=== PATIENT | female | born 1980 | race Caucasian/White ===

== ENCOUNTER 2016-08-18 00:10 | Observation (INO) | payer OTHER ==
[2016-08-18] MEDS ORDERED: MORPHINE SULFATE 10 MG/ML SYRINGE IM STA (01:07)
[2016-08-18] MEDS ORDERED: HYDROcodone/APAP 7.5-325MG 1 EACH TAB PO ONE (01:42)
[2016-08-18] MEDS ORDERED: DIAZEPAM 5 MG/ML 2 ML SYRINGE IM STA (01:42)
--- NOTE | 2016-08-18 01:46 | XR ---
EXAM: XR Right Shoulder Complete, 3 Views. CLINICAL HISTORY: Reason: Pain TECHNIQUE: Three views of the right shoulder. COMPARISON: No relevant prior studies available. FINDINGS: Bones/joints: Unremarkable. No acute fracture. No dislocation. Soft tissues: Unremarkable. IMPRESSION: Unremarkable right shoulder x-rays.
[2016-08-18] MEDS ORDERED: ONDANSETRON 4 MG/2 ML VIAL IVP STA (02:03)
[2016-08-18] MEDS ORDERED: ONDANSETRON ODT 4 MG TAB PO STA (02:07)
[2016-08-18] MEDS ORDERED: RX INFO: IV CONTRAST WAS GIVEN 1 EACH MISC MISCELLANE PRN (02:12)
--- NOTE | 2016-08-18 03:03 | US ---
EXAM: US Duplex Right Upper Extremity Veins. CLINICAL HISTORY: Reason: Pain TECHNIQUE: Real-time ultrasound scan of the veins of the right upper extremity with color Doppler flow, spectral waveform analysis and compression. COMPARISON: No relevant prior studies available. FINDINGS: Deep veins: Unremarkable. No DVT in the internal jugular, subclavian, axillary, or brachial veins. Superficial veins: Unremarkable. No thrombus in the visualized superficial veins. Soft tissues: No acute findings. IMPRESSION: Normal right upper extremity duplex venous ultrasound.
[2016-08-18 03:08] LABS: Basophils # (A) 0.1 k/uL (0-0.2); Basophils % (A) 1 %; CH 32.1; CHCM 34.1; Eosinophils # (A) 0.3 k/uL (0-0.7); Eosinophils % (A) 3 %; HCT 41.5 % (34.0-46.0); HDW 2.38; HGB 13.5 gm/dL (11.4-16.0); Luc # (Auto) 0.19; Luc % (Auto) 2; Lymphocytes # (A) 5.1 k/uL (1.0-4.8); Lymphocytes % (A) 43 %; MCH 30.8 pg (25.0-35.0); MCHC 32.6 g/dL (31.0-37.0); MCV 94.6 fL (80.0-100.0); Mean Platelet Volume 6.6; Monocytes # (A) 0.4 k/uL (0-1.0); Monocytes % (A) 3 %; Neutrophils # (A) 5.9 k/uL (1.3-7.7); Neutrophils % (A) 49 %; RBC 4.39 m/uL (3.80-5.40); WBC 11.9 k/uL (3.8-10.6); WBC (Perox) 12.14
--- NOTE | 2016-08-18 03:12 | ED ---
Extremity Problem HPI - General Chief complaint: Extremity Problem,Nontraumatic Stated complaint: Poss Dislocated Shoulder R Time Seen by Provider: 08/18/16 00:44 Source: patient, RN notes reviewed Mode of arrival: ambulatory Limitations: no limitations - History of Present Illness Initial comments: This a 35-year-old female presents emergency Department with chief complaint of severe right shoulder pain started 3 days ago. Patient states she woke up with pain in the pain is persistently gotten worse. She states she has increased pain with any sort of movement. Patient states that she had no known injury. Patient states that she's noticed there's been increased swelling to her hand, forearm region. Patient states that she thought there is some discoloration noted. Patient states that she is right-hand dominant. Patient states that she is not having some paresthesia type pain. Patient states his palely up into her right shoulder, neck region and into her porch worse region. Patient states she feels most intense pain in her axilla region. She denies any history of DVTs. Patient states her pulses been normal. Patient states that she drove back from [place] to be seen because her insurance was not accepted. Patient states that she's never had anything like this in the past. Patient denies any shortness of breath. Denies any headache or dizziness. - Related Data Home Medications Medication Instructions Recorded Confirmed Escitalopram [Lexapro] 30 mg PO DAILY 04/20/14 08/18/16 Fish Oil/Dha/Epa [Fish Oil 1,200 1 each PO DIRECTED 04/20/14 08/18/16 mg Fish Oil] Levothyroxine Sodium [Synthroid] 50 mcg PO DAILY 04/20/14 08/18/16 Lysine 500 mg PO DIRECTED 04/20/14 08/18/16 Nicotine 14Mg/24Hr Patch [Habitrol 1 patch TRANSDERM DIRECTED 04/20/14 14Mg/24Hr Patch] Simvastatin [Zocor] 40 mg PO HS 04/20/14 08/18/16 Triamterene-Hctz 37.5-25Mg 1 each PO DAILY 04/20/14 08/18/16 [Maxzide 37.5-25] Zinc 50 mg PO DIRECTED 04/20/14 08/18/16 Previous Rx's Medication Instructions Recorded Ibuprofen [Motrin] 800 mg PO Q8HR #30 tab 09/02/14 Allergies Allergy/AdvReac Type Severity Reaction Status Date / Time pneumococcal vaccine Allergy Anaphylaxis Verified 09/02/14 17:53 [Pneumococcal Vaccine] Review of Systems ROS Statement: Those systems with pertinent positive or pertinent negative responses have been documented in the HPI. ROS Other: All systems not noted in ROS Statement are negative. Past Medical History Past Medical History: Hyperlipidemia, Thyroid Disorder Additional Past Medical History / Comment(s): stomach ulcer History of Any Multi-Drug Resistant Organisms: None Reported Past Surgical History: Cholecystectomy, Tonsillectomy Additional Past Surgical History / Comment(s): seasonal depression Past Psychological History: Depression Smoking Status: Current every day smoker Past Alcohol Use History: Occasional Past Drug Use History: None Reported General Exam Limitations: no limitations General appearance: alert, in no apparent distress Head exam: Present: atraumatic, normocephalic, normal inspection Neck exam: Present: tenderness (Moderate tenderness along the right trapezius, paraspinal), full ROM. Absent: meningismus, lymphadenopathy Respiratory exam: Present: normal lung sounds bilaterally. Absent: respiratory distress, wheezes, rales, rhonchi, stridor Cardiovascular Exam: Present: regular rate, normal rhythm, normal heart sounds. Absent: systolic murmur, diastolic murmur, rubs, gallop, clicks Extremities exam: Present: other (Patient has some swelling noted to her right arm to her hand in forearm region radial pulses equal bilaterally +2 Reflexes and 2 seconds patient has hypersensitivity noted to the arm patient reports severe pain with any sort of movement of the right arm there is mild discoloration noted) Neurological exam: Present: alert, oriented X3, CN II-XII intact, reflexes normal. Absent: motor sensory deficit Skin exam: Present: warm, dry Course Vital Signs 08/18/16 00:33 Temperature 97.4 F L Pulse Rate 83 Respiratory 20 Rate Blood Pressure 138/83 O2 Sat by Pulse 97 Oximetry Medical Decision Making - Medical Decision Making 35-year-old female presented for right arm pain. Patient's workup in the emergency department does not reveal any significant abnormality the patient has intractable pain. Patient has required multiple rounds of pain medication no relief of her symptoms. There is concern for possible thoracic alert syndrome. Patient be admitted under medicine pain management and orthopedic consult. - Lab Data Result diagrams: 08/18/16 02:44 08/18/16 02:44 Lab Results 08/18/16 08/18/16 08/18/16 Range/Units 02:44 02:44 02:44 WBC 11.9 H (3.8-10.6) k/uL RBC 4.39 (3.80-5.40) m/uL Hgb 13.5 (11.4-16.0) gm/dL Hct 41.5 (34.0-46.0) % MCV 94.6 (80.0-100.0) fL MCH 30.8 (25.0-35.0) pg MCHC 32.6 (31.0-37.0) g/dL RDW 13.0 (11.5-15.5) % Plt Count 306 (150-450) k/uL Neutrophils % 49 % Lymphocytes % 43 % Monocytes % 3 % Eosinophils % 3 % Basophils % 1 % Neutrophils # 5.9 (1.3-7.7) k/uL Lymphocytes # 5.1 H (1.0-4.8) k/uL Monocytes # 0.4 (0-1.0) k/uL Eosinophils # 0.3 (0-0.7) k/uL Basophils # 0.1 (0-0.2) k/uL Manual Slide Review Performed Toxic Granulation Present PT 9.8 (9.0-12.0) sec INR 1.0 (<1.1) APTT 28.3 (22.0-30.0) sec Sodium 143 (137-145) mmol/L Potassium 4.1 (3.5-5.1) mmol/L Chloride 105 (98-107) mmol/L Carbon Dioxide 27 (22-30) mmol/L Anion Gap 11 mmol/L BUN 12 (7-17) mg/dL Creatinine 0.88 (0.52-1.04) mg/dL Est GFR (MDRD) Af Amer >60 (>60 ml/min/1.73 sqM) Est GFR (MDRD) Non-Af >60 (>60 ml/min/1.73 sqM) Glucose 104 H (74-99) mg/dL Calcium 9.9 (8.4-10.2) mg/dL Total Bilirubin 0.5 (0.2-1.3) mg/dL AST 38 H (14-36) U/L ALT 47 (9-52) U/L Alkaline Phosphatase 90 (38-126) U/L Total Protein 6.9 (6.3-8.2) g/dL Albumin 4.0 (3.5-5.0) g/dL Disposition Clinical Impression: Intractable pain, Right arm pain, Swelling of right upper extremity Disposition: ADMITTED IP TO THIS [facility] Condition: Fair
[2016-08-18 03:13] LABS: ALT 47 U/L (9-52); AST 38 U/L (14-36); Alkaline Phosphatase 90 U/L (38-126); Anion Gap 11 mmol/L; Blood Urea Nitrogen 12 mg/dL (7-17); Calcium 9.9 mg/dL (8.4-10.2); Carbon Dioxide 27 mmol/L (22-30); Chloride 105 mmol/L (98-107); Glucose 104 mg/dL (74-99); Non-African American GFR(MDRD) >60 (>60 ml/min/1.73 sqM); Potassium 4.1 mmol/L (3.5-5.1); Sodium 143 mmol/L (137-145); Total Bilirubin 0.5 mg/dL (0.2-1.3); Total Protein 6.9 g/dL (6.3-8.2)
[2016-08-18] MEDS ORDERED: KETOROLAC 30 MG/ML 1 ML VIAL IVP STA (03:25)
[2016-08-18 03:33] LABS: Toxic Granulation Present
[2016-08-18 03:35] LABS: Partial Thromboplastin Time 28.3 sec (22.0-30.0); Prothrombin Time 9.8 sec (9.0-12.0)
[2016-08-18 03:40] LABS: Manual Review Performed
--- NOTE | 2016-08-18 03:50 | CT ---
EXAM: CT of the Right Upper Extremity With Intravenous Contrast. CLINICAL HISTORY: Reason: Pain TECHNIQUE: Axial computed tomography images of the right upper extremity with intravenous contrast during the arterial phase of enhancement. CTDI is 8. 3 L mGy and DLP is 513 mGy-cm Coronal reformatted images were created and reviewed. COMPARISON: Right shoulder and chest radiographs dated 08/18/16. FINDINGS: VASCULATURE: Right subclavian artery: No acute findings. No occlusion or significant stenosis. Right axillary artery: No acute findings. No occlusion or significant stenosis. Right brachial artery: No acute findings. No occlusion or significant stenosis. Right radial artery: No acute findings. No occlusion or significant stenosis. Right ulnar artery: No acute findings. No occlusion or significant stenosis. UPPER EXTREMITY: Bones/joints: No acute fracture. No dislocation. Soft tissues: Unremarkable. No abnormal contrast enhancement. Other findings: Right floor of mouth cystic lesion which may represent a ranula measuring up to 4.5 x 3.2-cm. Cholecystectomy. IMPRESSION: Right floor of mouth cystic lesion which may represent a ranula measuring up to 4.5 x 3.2-cm. Unremarkable CT angiogram of the right upper extremity. [employer] 08/18/16 03:57 Call From [facility] DR MACK
[2016-08-18] MEDS ORDERED: ONDANSETRON 4 MG/2 ML VIAL IVP PRN (04:05)
[2016-08-18] MEDS ORDERED: LORazepam 2 MG/ML SYRINGE IV PRN (04:05)
[2016-08-18] MEDS ORDERED: NALOXONE 0.4 MG/ML 1 ML VIAL IV PRN (04:05)
[2016-08-18] MEDS ORDERED: ORPHENADRINE 30 MG/ML 2 ML VIAL IVP STA (04:07)
[2016-08-18] MEDS ORDERED: NICOTINE 21MG/24HR PATCH TRANSDERM STA (04:08)
[2016-08-18] MEDS: HYDROmorphone 1 MG/ML 1 ML SYRINGE IV PRN ×2 (05:12→09:03)
[2016-08-18 05:31] VITALS: BMI 36.8
--- NOTE | 2016-08-18 06:35 | XR ---
EXAMINATION TYPE: XR chest 1V DATE OF EXAM: 08/18/2016 3:38 AM HISTORY: Right arm pain. REFERENCE: NONE. FINDINGS: The lungs are clear. Pleural spaces are clear. Heart size is normal. IMPRESSION: NORMAL CHEST.
[2016-08-18 08:39] VITALS: PULSE 77; RESP 14; TEMP 97.6
[2016-08-18] MEDS ORDERED: ORPHENADRINE 30 MG/ML 2 ML VIAL IVP SCH (09:00)
--- NOTE | 2016-08-18 10:28 | P.CNOR ---
History of Present Illness - HPI Consult date: 08/18/16 Consult reason: other (Right arm pain) History of present illness: The patient is a 35 year old female who presented to the emergency department with severe right shoulder and arm pain. We were consulted for orthopedic evaluation of the arm pain. She states the arm pain started 3 days ago while in [place] after waking up in the morning. No specific injury preceded the onset of pain. The patient has increased pain with any sort of movement to the right upper extremity. Most of the pain is on the posterior aspect of the arm. She states that her arm is swollen and noticed that her arm turned "purple" the other day. She complains of tingling to the arm as well with numbness in all of her fingers, especially the right index finger. She denies experiencing this intense pain before and states she has had some neck pain in the past. The past couple of days she has been taking Motrin at home without relief then started taking the Motrin with "a shot of vodka" to help ease the pain. She given multiple pain medications in the emergency department without much relief of pain. The patient denies fever, chills, shortness of breath, chest pain, and abdominal pain. Review of Systems Constitutional: Denies as per HPI, Denies chills, Denies fever Cardiovascular: Denies chest pain, Denies shortness of breath Gastrointestinal: Denies abdominal pain, Denies nausea, Denies vomiting Musculoskeletal: Reports arm numbness/tingling, Reports neck pain, Reports neck stiffness, Reports shooting arm pain Musculoskeletal: right: shoulder pain Neurological: Reports numbness, Denies headaches Past Medical History Past Medical History: Hyperlipidemia, Thyroid Disorder Additional Past Medical History / Comment(s): stomach ulcer History of Any Multi-Drug Resistant Organisms: None Reported Past Surgical History: Cholecystectomy, Tonsillectomy Additional Past Surgical History / Comment(s): seasonal depression Past Anesthesia/Blood Transfusion Reactions: No Reported Reaction Past Psychological History: Depression Smoking Status: Current every day smoker Past Alcohol Use History: Occasional Past Drug Use History: None Reported - Past Family History Mother Family Medical History: Cancer Additional Family Medical History / Comment(s): Lung CA Medications and Allergies Home Medications Medication Instructions Recorded Confirmed Type Escitalopram [Lexapro] 20 mg PO DAILY 04/20/14 08/18/16 History Fish Oil/Dha/Epa [Fish Oil 1,200 1 cap PO DAILY 04/20/14 08/18/16 History mg Fish Oil] Levothyroxine Sodium [Synthroid] 50 mcg PO DAILY 04/20/14 08/18/16 History Lysine 500 mg PO DAILY 04/20/14 08/18/16 History Nicotine 14Mg/24Hr Patch [Habitrol 1 patch TRANSDERM DAILY 04/20/14 08/18/16 History 14Mg/24Hr Patch] Triamterene-Hctz 37.5-25Mg 1 tab PO DAILY 04/20/14 08/18/16 History [Maxzide 37.5-25] Zinc 50 mg PO DAILY 04/20/14 08/18/16 History Atorvastatin [Lipitor] 20 mg PO HS 08/18/16 08/18/16 History Ibuprofen [Motrin] 800 mg PO Q8HR PRN 08/18/16 08/18/16 History Allergies Allergy/AdvReac Type Severity Reaction Status Date / Time adhesive Allergy Rash/Hives Verified 08/18/16 07:35 pneumococcal vaccine Allergy Anaphylaxis Verified 08/18/16 07:35 [Pneumococcal Vaccine] sulfamethoxazole Allergy Rash/Hives Verified 08/18/16 07:35 [From Bactrim] trimethoprim [From Bactrim] Allergy Rash/Hives Verified 08/18/16 07:35 Physical Examination The patient is a 35 year old female in no acute distress. She is alert and oriented x3. Exam of the cervical spine reveals some limitation in ROM of the neck side to side with shooting pains down the right arm with movement to the right and left. No pain on palpation. No step-offs noted. No open wounds or redness noted. Bilateral trapezius muscles are tense with pain on palpation. Exam of the left upper extremity reveals a benign exam, no open wounds, swelling , redness, or pain on palpation or ROM. Exam of the right upper extremity reveals no obvious deformity or swelling. No pain on palpation of the shoulder , elbow, or wrist joints. The patient's upper and lower arm is soft and supple. No open wounds are present. There is a slight color difference to the right when compared to the left. She is unable to active lift her right arm and is unwilling to try to due extreme pain. She is able to wiggle her fingers and actively extend her finger without difficulty. She has weakness upon muscle testing in the right hand, 2-3/5. Numbness is present to all fingers on the right hand. Circulatory status is intact. Radial pulse is strong at 2+. Capillary refill is <2 seconds. Results CTA of the right arm reveals no significant findings. - Labs Result Diagrams: 08/18/16 02:44 08/18/16 02:44 - Diagnostic results Shoulder x-ray: image reviewed (No fractures or dislocation noted. ) Assessment and Plan (1) Intractable pain Status: Acute (2) Right arm pain Status: Acute (3) Cervical pain (neck) Status: Acute (4) Cervical radicular pain Status: Acute Plan: The clinical and diagnostic findings were discussed with the patient. The case was also discussed at length with Dr. Fried. We are recommending a cervical spine evaluation by Dr. Aguilar to rule out cervical radiculopathy for the cause of her arm pain and weakness. We will also consult Dr. Saha, vascular surgery, to further evaluate for possible vascular issues with the right arm for a possible cause of the severe arm pain. There are no signs of compartment syndrome or other orthopedic related issues with her arm. A cervical spine series will be ordered. Continue pain control. We will await further input from consulting physicians and make further recommendations as needed.
--- NOTE | 2016-08-18 10:55 | XR ---
EXAMINATION TYPE: XR cervical spine comp DATE OF EXAM: 08/18/2016 10:50 AM COMPARISON: NONE HISTORY: Chronic neck and right shoulder pain TECHNIQUE: Four views are submitted. FINDINGS: The odontoid is intact. There are no compression deformities. The prevertebral soft tissue structur es are within normal limits. There is moderate narrowing of the disc space with hypertrophic change C6-C7. Loss the normal cervical lordosis. IMPRESSION: 1. Degenerative disc disease C6-C7.
[2016-08-18 12:20] VITALS: BP 100/55
--- NOTE | 2016-08-18 20:36 | HP ---
DATE OF ADMISSION: This dictation is both H&P and discharge summary. Patient is a 35-year-old female who came in with complaints of neck pain radiating to the right arm. Patient has tingling and numbness in the whole right hand she says. Patient is ( ) surgery. Patient's pain is sharp in nature about 8 to 10 in intensity, although the patient is very ( ) patient does not have any weakness. Patient was evaluated by Vascular Surgery and Orthopedic Surgery and patient is awaiting evaluation by Dr. Aguilar. Patient had a CT of the chest, which was negative. Patient was ruled out acute coronary syndrome. Patient's EKG is essentially within normal limits. Patient will be discharged today. Patient will need an outpatient MRI. Patient does not have a PCP. Patient will be referred to Dr. Silvana Guzman as an outpatient. Patient is actually hypotensive and is on hydrochlorothiazide. Patient is hypotensive because of that and patient is requesting narcotic medications. Patient apparently has narcotic seeking behavior. May have degenerative cervical spine disease as well. MRI can be obtained as an outpatient. Patient does have radicular symptoms. Will let Dr. Aguilar evaluate the patient, after which patient will be discharged with Tramadol. Patient is taking ibuprofen at home. She said she had acid reflux because of which she cannot take that. I will also give her Pepcid and patient will be discharged. patient has musculoskeletal pain and will need to follow with ( ) and Dr. Aguilar as an outpatient. MRI can be obtained as an outpatient. There is no emergent requirement for MRI here. I do not believe patient will have much benefit from Decadron. I will leave that decision to Dr. Aguilar. REVIEW OF SYSTEMS: CONSTITUTIONAL: No fever, no malaise, no fatigue. HEENT: No recent visual problems or hearing problems. Denied any sore throat. CARDIOVASCULAR: No chest pain, orthopnea, PND, no palpitations, no syncope. PULMONARY: No shortness of breath, no cough, no hemoptysis. GASTROINTESTINAL: No diarrhea, no nausea, no vomiting, no abdominal pain. Normoactive bowel sounds. NEUROLOGICAL: No headaches, no weakness, no numbness. HEMATOLOGICAL: Denies any bleeding or petechiae. GENITOURINARY: Denies any burning micturition, frequency, or urgency. MUSCULOSKELETAL/RHEUMATOLOGICAL: As described in HPI. ENDOCRINE: Denies any polyuria or polydipsia. The rest of the 14 point review of systems is negative. PAST MEDICAL HISTORY: Hypertension, anxiety disorder, depression, hyperlipidemia. SOCIAL HISTORY: Patient is a smoker. Denied any alcohol abuse or any drug abuse. FAMILY HISTORY: Denied any family history of hypertension, as well as coronary artery disease in the family. PHYSICAL EXAMINATION: Temperature is afebrile, pulse of around 85, respiratory rate of 18, blood pressure is 98/55. GENERAL: The patient is alert and oriented x3, not in any acute distress. Well developed, well nourished. HEENT: Pupils are round and equally reacting to light. EOMI. No scleral icterus. No conjunctival pallor. Normocephalic, atraumatic. No pharyngeal erythema. No thyromegaly. CARDIOVASCULAR: S1 and S2 present. No murmurs, rubs, or gallops. PULMONARY: Chest is clear to auscultation, no wheezing or crackles. ABDOMEN: Soft, nontender, nondistended, normoactive bowel sounds. No palpable organomegaly. MUSCULOSKELETAL: No joint swelling or deformity. EXTREMITIES: No cyanosis, clubbing, or pedal edema. NEUROLOGICAL: Gross neurological examination did not reveal any focal deficits. SKIN: No rashes. LABORATORY DATA: CBC and CMP essentially within normal limits. CT angio of the chest as mentioned above. ASSESSMENT AND PLAN: 1. Neck pain radiating to the right arm with some tingling and numbness. 2. Patient may have cervical degenerative disc disease. I do not believe this is cardiac pain. 3. Gastroesophageal reflux disease. 4. Hypertension. Patient is actually hypotensive here. I do not believe patient is hypertensive so will discontinue antihypertensive medications. 5. Possible narcotic seeking behavior. 6. Obesity. Counseling was provided. ASSESSMENT AND PLAN: The patient will be discharged with tramadol and ibuprofen will be discontinued. The patient will follow with Dr. Aguilar as an outpatient and Dr. Silvana Guzman in about 3 to 7 days. Activity as tolerated. Regular low calorie diet. Counseling regarding opiate abuse was provided.
--- NOTE | 2016-08-19 09:26 | CONS ---
DATE OF CONSULTATION: This is a 35-year-old female. I was consulted for vascular evaluation. Patient has been complaining of pain in the right shoulder for the past few days. She has no history of trauma. Patient had a CT of the right arm and subclavian axillary vein and brachial and radial arteries are patent. Patient also had a venous ultrasound of the right leg. There is no evidence of deep vein thrombosis. MEDICAL HISTORY: No history of diabetes, hypertension, coronary artery disease. On examination, patient was seen in the room. Neck is supple. Trachea central. Chest is clear to auscultation. First and second heart sounds are normal. Abdomen is soft, nontender. VASCULAR EXAMINATION: Axillary, brachial, radial and ulnar arteries are palpable on the right arm. There is no evidence of localized tenderness. The patient has a free range of motion of the right shoulder. IMPRESSION: At this point there is no evidence of any vascular compromise or venous occlusive disease or any DVT of the right arm. Neurogenic pain has to be ruled out.
== END 2016-08-18 16:42 | disposition home or self-care (01) ==
LOC: EC 00:10 → 3OBS 04:00
PROVIDERS: ADMIT Hospitalist; ATTEND Hospitalist
DX: M79.601 Pain in right arm (principal); M54.2 Cervicalgia; M25.511 Pain in right shoulder; R20.2 Paresthesia of skin; R20.0 Anesthesia of skin; K21.9 Gastro-esophageal reflux disease without esophagitis; I95.9 Hypotension, unspecified; E66.9 Obesity, unspecified; E78.5 Hyperlipidemia, unspecified; F17.200 Nicotine dependence, unspecified, uncomplicated; I10 Essential (primary) hypertension; M79.1 Myalgia; Z79.899 Other long term (current) drug therapy; Z87.11 Personal history of peptic ulcer disease; Z88.7 Allergy status to serum and vaccine; E07.9 Disorder of thyroid, unspecified; F32.9 Major depressive disorder, single episode, unspecified; Z88.1 Allergy status to other antibiotic agents; Z91.048 Other nonmedicinal substance allergy status; M79.89 Other specified soft tissue disorders
CPT/HCPCS: 96375 ×3; 96372 ×3; 96374 ×2; 99285 ×2; 36415; 80053; 85025; 85610; 85730; 71010; 72050; 73030; 93971; 73206; G0378; S4990; J2060; J2360; J3360; Q9967; J2270; J2405; J1885; J1170; 96361; 99284

== ENCOUNTER → 2017-01-01 | Outpatient (CLI) | payer OTHER ==
[2016-12-29 15:31] VITALS: BMI 37.7
[2017-01-01 13:31] VITALS: BP 125/82; PULSE 81; TEMP 98.5
--- NOTE | 2017-01-01 14:04 | P.HPIM ---
History of Present Illness H&P Date: 01/01/17 Chief Complaint: neck and right arm pain This is a 36-year-old female patient referred by Dr. Aguilar for chronic pain in neck and right arm pain that began in August after she awoke from sleep, with pain and numbness/tingling into her right arm and specifically 1st/2nd/3rd fingers. Patient has been taking medications from primary care physician including Zanaflex medications with some relief. Patient denies adverse drug effects from medications. Patient also denies new-onset weakness, bowel/ bladder incontinence, or any other signs or symptoms of cauda equina syndrome. There are no signs of acute intoxication, and no indications of medication diversion or overuse. Patient notes that pain worsens significantly with bending the neck and walking , and improves with rest, ice, and medication. Patient has used several types of medications for pain, including NSAIDS, OPIOIDS, muscle relaxants (Zanaflex). Patient HAS NOT had surgery. Patient HAS NOT had injections previously. Patient HAS NOT had physical therapy recently. In addition to above, 13-point review of systems is also negative for chest pain , shortness of breath, changes in vision, changes in hearing, new onset weakness , abdominal pain, diarrhea, extreme fatigue, malaise, fever, skin changes, homicidal or suicidal ideation, or bowel or bladder incontinence. Vital Signs: Reviewed in EMR Gen: WDWN, AAOx3, NAD HEENT: NCAT, EOMI, hearing grossly normal Pulm: resp unlabored Abd: soft, NT, ND, obese Neck: supple, trachea midline ROM in flexion cervical spine: reduced ROM in extension cervical spine: reduced Cervical paravertebral tenderness: + Cervical Facet tenderness: + bilateral Spurling's: + RUE UE: decreased reimbursement rep strength RUE 3-4/5, LUE 5/5 reimbursement rep Neuro: CN II-XII grossly intact, muscle strength lower extremities PRESERVED Past Medical History Past Medical History: Hyperlipidemia, Skin Disorder, Thyroid Disorder Additional Past Medical History / Comment(s): stomach ulcer,ankle swelling, chronic pain neck radiating down zain arms and hands,rash chest History of Any Multi-Drug Resistant Organisms: None Reported Past Surgical History: Cholecystectomy, Tonsillectomy Additional Past Surgical History / Comment(s): seasonal depression Past Anesthesia/Blood Transfusion Reactions: Motion Sickness Smoking Status: Current every day smoker - Past Family History Mother Family Medical History: Cancer Additional Family Medical History / Comment(s): cervical,breast,Lung CA Medications and Allergies Home Medications Medication Instructions Recorded Confirmed Type Escitalopram [Lexapro] 20 mg PO DAILY 04/20/14 01/01/17 History Fish Oil/Dha/Epa [Fish Oil 1,200 1 cap PO DAILY 04/20/14 01/01/17 History mg Fish Oil] Levothyroxine Sodium [Synthroid] 50 mcg PO DAILY 04/20/14 01/01/17 History Lysine 500 mg PO DAILY 04/20/14 01/01/17 History Nicotine 14Mg/24Hr Patch [Habitrol] 1 patch TRANSDERM DAILY 04/20/14 01/01/17 History Zinc 50 mg PO DAILY 04/20/14 01/01/17 History Atorvastatin [Lipitor] 20 mg PO HS 08/18/16 01/01/17 History Ascorbic Acid [Vitamin C] 1,000 mg PO DAILY 12/29/16 01/01/17 History 114/Iron A-G/Folate 1 1 tab PO DAILY 12/29/16 01/01/17 History [Prenate Elite Tablet] Triamterene/Hydrochlorothiazid 1 tab PO DAILY 12/29/16 01/01/17 History [Triamterene-Hctz 37.5-25 mg Tb] Allergies Allergy/AdvReac Type Severity Reaction Status Date / Time adhesive Allergy Rash/Hives Verified 01/01/17 13:21 pneumococcal vaccine Allergy Anaphylaxis Verified 01/01/17 13:21 [Pneumococcal Vaccine] sulfamethoxazole Allergy Rash/Hives Verified 01/01/17 13:21 [From Bactrim] trimethoprim [From Bactrim] Allergy Rash/Hives Verified 01/01/17 13:21 Results Comments: MRI cervical spine demonstrates a small central/right paracentral disc protrusion effacing the ventral thecal sac. There is mild right neural foraminal stenosis secondary to uncovertebral hypertrophy. The C6-C7 level there is a disc bulge with central and left paracentral disc extrusion uncovertebral peripheral hypertrophy on the right side greater than left side and a possible small right foraminal disc protrusion. There is mild central canal stenosis with slight cord flattening and moderate right neural foraminal stenosis. Assessment and Plan (1) Cervical disc herniation Status: Acute (2) Cervical radicular pain Status: Acute Plan: 1. Explanation: Opioid and psychological risk scores were reviewed. Diagnoses , prognoses, and multiple treatment options including but not limited to physical therapy, interventional therapies, adjuvant medical therapies, narcotic medication therapies, and surgery were discussed with the patient and all questions were answered to the patient's satisfaction. 2. Opioid agreement: no opioids prescribed today 3. Counseling: The patient was counseled extensively on SMOKING CESSATION, BODY MASS INDEX, EXERCISE. Specifically, the patient was instructed regarding the importance of smoking cessation, weight control, and exercise in the context of both chronic pain and overall health. 4. Procedures: none for now, consider cervical D[place] in future 5. Consultations: none 6. Investigations: none 7. Medications: Zanaflex 4 mg #180 (8 mg TID) with one refill 8. Disposition: f/u for re-eval in 4 weeks; patient would likely benefit from cervical spine surgery based on uncomplicated MRI and already has an appointment with neurosurgeon scheduled for January 14. PQRS measures: 1-Patient's medications are documented in the chart. 2-Tobacco use is positive, counseling given 3-Patient has not had a pneumococcal vaccine. 4-Advanced care planning discussed, patient unable to give. 5-Opioid contract NOT signed with the patient. 6-Pain positive, follow-up visit or procedure scheduled 7-Patient's blood pressure measured and documented, and patient will follow up with the primary care due to hypertension. 8-Patient's weight was measured, and body mass index ABOVE the normal limits, and counseling was done. Patient instructed to follow up with PCP. 9-Patient WAS NOT identified as an unhealthy alcohol user. Time with Patient: Greater than 30
== END | disposition home or self-care (01) ==
LOC: PNWHC3 13:09
PROVIDERS: ATTEND Anesthesiology
DX: M50.20 Other cervical disc displacement, unspecified cervical region (principal)
CPT/HCPCS: 99211